=== PATIENT | female | born 1945 | race Caucasian/White ===

== ENCOUNTER 2019-04-13 13:44 | Inpatient (IN) | payer OTHER ==
[~2019-04-13] VITALS: Ht 149.9 cm; Wt 52.7 kg
[~2019-04-13 13:44] MED LIST: ASPI-817 PO; BUDE6HFA IH; BUDE6HFA INHALATION; DORZ10DR6 BOTH EYES; ESTR1TAB14 PO; ESTR1TAB79 PO; LEVO500T48 PO; NICO-544 TD; OMEP40CA38 PO; PRED2.5T3 PO; STOMACH MED PO; TML25OPG5 OP; TRAM50TA PO; TRAMADOL PO; XOPENEX
[2019-04-13] MEDS ORDERED: SOD CHLORIDE 0.9% 1,000 ML IV STA (14:19)
[2019-04-13] MEDS ORDERED: ONDANSETRON 4 MG INJ IV STA (14:53)
[2019-04-13] MEDS ORDERED: traMADol 50 MG TAB PO ONE (15:00)
[2019-04-13] MEDS ORDERED: KETOROLAC 30 MG INJ IV STA (15:47)
[2019-04-13] MEDS ORDERED: METOCLOPRAMIDE 10 MG INJ IV ONE (16:00)
[2019-04-13] MEDS ORDERED: CEFTRIAXONE 1 GM/50 ML (PMX) 50 ML IVPB STA (16:03)
[2019-04-13] MEDS ORDERED: AZITHROMYCIN 500MG/NS (PMX) 250 ML IV STA (16:03)
[2019-04-13] MEDS ORDERED: ONDANSETRON 4 MG INJ IV PRN (16:30)
[2019-04-13] MEDS ORDERED: ACETAMINOPHEN 325 MG TAB PO PRN (16:30)
[2019-04-13] MEDS ORDERED: NON-FORMULARY/PATIENT OWN MED (Budesonide-Formoterol Fumarate* (Symbicort*) 2 PUFF) INHALATION SCH (21:00)
[2019-04-13] MEDS ORDERED: DORZOLAMIDE/TIMOLOL 10 ML OPH BOTH EYES SCH (21:00)
[2019-04-13] MEDS ORDERED: ASPIRIN (EC) 81 MG TAB PO ONE (23:00)
[2019-04-14 01:29] VITALS: Ht 149.9 cm; Wt 52.7 kg
[2019-04-14] MEDS: traMADol 50 MG TAB PO PRN ×3 (01:59→20:14)
[2019-04-14 04:52] VITALS: BP 131/71; PULSE 88; RESP 22
[2019-04-14 07:39] VITALS: BP 132/62; PULSE 73; RESP 20
[2019-04-14] MEDS: ARFORMOTEROL TARTRATE 15MCG/2 ML AMP HHN SCH ×2 (08:00→21:01)
[2019-04-14] MEDS: PANTOPRAZOLE (EC) 40 MG TAB PO SCH (08:52)
[2019-04-14] MEDS: ASPIRIN (EC) 81 MG TAB PO SCH (08:52)
[2019-04-14] MEDS: LEVOFLOXACIN 500 MG TAB PO SCH (08:52)
[2019-04-14] MEDS: NICOTINE (7 MG/24 HR) PATCH TRANSDERM SCH (08:52)
[2019-04-14] MEDS ORDERED: NON-FORMULARY/PATIENT OWN MED (Omeprazole* 40 MG) PO SCH (09:00)
[2019-04-14] MEDS: BUDESONIDE (NEB) 0.5MG/2ML AMP INH SCH ×2 (10:47→21:01)
[2019-04-14 11:23] VITALS: BP 133/63; PULSE 76; RESP 20
[2019-04-14] MEDS ORDERED: HYDROCODONE/APAP (5/325) TAB PO PRN (11:30)
[2019-04-14] MEDS ORDERED: ONDANSETRON 4 MG INJ IV PRN ×2 (13:30→14:00)
[2019-04-14] MEDS ORDERED: METOCLOPRAMIDE 10 MG INJ IV PRN (15:00)
[2019-04-14] MEDS: ACETAMINOPHEN 500 MG TAB PO PRN (15:07)
[2019-04-14 15:25] VITALS: BP 138/63; PULSE 77; RESP 19
[2019-04-14] MEDS: DORZOLAMIDE/TIMOLOL/PF 0.2 ML DROPERETTE BOTH EYES SCH ×2 (16:03→20:14)
[2019-04-14 20:36] VITALS: BP 118/58; PULSE 70; RESP 18
[2019-04-14] MEDS: METOPROLOL 25 MG TAB PO SCH (21:00)
[2019-04-14] MEDS ORDERED: ATORVASTATIN 40 MG TAB PO SCH (21:00)
[2019-04-15 00:43] VITALS: BP 102/51; PULSE 73; RESP 16
[2019-04-15 04:04] VITALS: BP 123/64; PULSE 74; RESP 18
[2019-04-15] MEDS: traMADol 50 MG TAB PO PRN (04:25)
[2019-04-15] MEDS: ACETAMINOPHEN 500 MG TAB PO PRN (04:25)
[2019-04-15] MEDS: PANTOPRAZOLE (EC) 40 MG TAB PO SCH (05:18)
[2019-04-15 07:49] VITALS: BP 103/51; PULSE 66; RESP 18
[2019-04-15] MEDS: BUDESONIDE (NEB) 0.5MG/2ML AMP INH SCH (08:12)
[2019-04-15] MEDS: ARFORMOTEROL TARTRATE 15MCG/2 ML AMP HHN SCH (08:36)
[2019-04-15] MEDS: LEVOFLOXACIN 500 MG TAB PO SCH (09:13)
[2019-04-15] MEDS: DORZOLAMIDE/TIMOLOL/PF 0.2 ML DROPERETTE BOTH EYES SCH (09:13)
[2019-04-15] MEDS: METOPROLOL 25 MG TAB PO SCH (09:14)
[2019-04-15] MEDS: ASPIRIN (EC) 81 MG TAB PO SCH (09:14)
[2019-04-15] MEDS: NICOTINE (7 MG/24 HR) PATCH TRANSDERM SCH (09:14)
[2019-04-15 11:40] VITALS: BP 115/53; PULSE 63; RESP 18
[2019-04-15] MEDS ORDERED: REGADENOSON 0.4 MG/5 ML SYG ONE (13:19)
[2019-04-15 16:09] VITALS: BP 109/55; PULSE 76; RESP 18
== END 2019-04-15 17:05 | disposition home health service (06) | DRG 194 ==
LOC: E/R 13:44 → 6WM 16:24 → CANRESERV 22:54 → 6WM 04-14 00:46
PROVIDERS: ADMIT Internal Medicine; ATTEND Internal Medicine
DX: J18.1 Lobar pneumonia, unspecified organism (principal); J44.0 Chronic obstructive pulmonary disease with (acute) lower respiratory infection; R55 Syncope and collapse; I10 Essential (primary) hypertension; R79.89 Other specified abnormal findings of blood chemistry; M79.7 Fibromyalgia; Z87.891 Personal history of nicotine dependence
CPT/HCPCS: 36415; 70450; 71045; 78452; 80048; 80053; 81003; 82550; 82553; 83605; 83880; 84484; 85025; 93005; 93017; 93306; 94640; 94664; 96361; 96374; 96375; 97161; A9500; A9505; J0456; J0696; J1885; J2405; J2765; J2785; J7030